=== PATIENT | female | born 1950 | race Caucasian/White ===

== ENCOUNTER 2017-10-27 10:36 | Outpatient (CLI) | payer MEDICARE, OTHER | END 2017-10-27 10:37 | disposition home or self-care (01) | LOC: BICMAMMO 10:36 | PROVIDERS: ATTEND Family Medicine | DX: Z12.31 Encounter for screening mammogram for malignant neoplasm of breast (principal) | CPT/HCPCS: 77063; 77067 ==

== ENCOUNTER 2020-10-13 13:00 | Outpatient (CLI) | payer MEDICARE, OTHER | END 2020-10-13 13:01 | disposition home or self-care (01) | LOC: BICRAD 13:00 | PROVIDERS: ATTEND Family Medicine | DX: M54.2 Cervicalgia (principal); M47.812 Spondylosis without myelopathy or radiculopathy, cervical region | CPT/HCPCS: 72040 ==

== ENCOUNTER 2022-04-27 14:30 | Outpatient (CLI) | payer MEDICARE, OTHER | END 2022-04-27 14:31 | disposition home or self-care (01) | LOC: ULT 14:30 | PROVIDERS: ATTEND Ophthalmology Retina Specialist | DX: H35.82 Retinal ischemia (principal) | CPT/HCPCS: 93880 ==

== ENCOUNTER 2022-05-17 07:24 | Outpatient (CLI) | payer MEDICARE, OTHER ==
[2022-05-17] MEDS ORDERED: Iopamidol-370 76% 500 ML 1 ML ONE (08:30)
== END 2022-05-17 07:25 | disposition home or self-care (01) ==
LOC: BICCT 07:24
PROVIDERS: ATTEND Thoracic Surgery (Cardiothoracic Vascular Surgery)
DX: I65.21 Occlusion and stenosis of right carotid artery (principal)
CPT/HCPCS: 70498; 82565; Q9967

== ENCOUNTER 2022-06-07 10:46 | Outpatient (CLI) | payer MEDICARE, OTHER ==
[2022-06-07 11:44] LABS: Hemoglobin 14.5 g/dL (12.0-15.5); Mean Corpuscular HGB CONC 32.7 g/dL (32.0-36.0); Mean Corpuscular Hemoglobin 30.9 pg (27.0-33.0); Mean Corpuscular Volume 94.7 fl (81.6-98.3); Mean Platelet Volume 11.2 fl (7.4-10.4); Platelet Count 294 10x3/uL (150-450); RBC Distribution Width 13.9 % (11.5-14.5); Red Blood Cell (RBC) Count 4.69 10x6/uL (3.90-5.03); White Blood Cell (WBC) Count 10.1 10x3/uL (3.5-10.5)
[2022-06-07 11:52] LABS: Anion Gap 18 mmol/L (10-20); BUN (Urea Nitrogen) 18 mg/dL (9.8-20.1); Calc. Creatinine Clearance 0 mL/min (70-130); Calcium 9.5 mg/dL (7.8-10.44); Carbon Dioxide 24 mmol/L (23-31); Chloride 104 mmol/L (98-107); Estimated GFR 78; Glucose 129 mg/dL (83-110); Potassium 4.1 mmol/L (3.5-5.1); Sodium 142 mmol/L (136-145)
== END 2022-06-07 10:47 | disposition home or self-care (01) ==
LOC: LABBT 10:46
PROVIDERS: ATTEND Thoracic Surgery (Cardiothoracic Vascular Surgery)
DX: Z01.818 Encounter for other preprocedural examination (principal)
CPT/HCPCS: 80048; 85027; 93005; 93010

== ENCOUNTER 2022-06-07 11:15 | Inpatient (IN) | payer MEDICARE, OTHER ==
[2022-06-08] MEDS ORDERED: Sodium Chloride 0.9% 100 ML ONE (07:20)
[2022-06-08] MEDS ORDERED: CEFAZOLIN 2 GM VIAL ONE (07:20)
[2022-06-08] MEDS ORDERED: Calcium Chloride 1 GM/10 ML Abboject SYRINGE ONE (07:30)
[2022-06-08] MEDS ORDERED: NEOSTIGMINE 3 MG/3 ML SYR 3 MG/3 ML SYRINGE ONE (07:30)
[2022-06-08] MEDS ORDERED: Lidocaine 1% PF 5 ML VIAL ONE (07:30)
[2022-06-08] MEDS ORDERED: Rocuronium Bromide 10 MG/ML (10ML VIAL) ONE (07:30)
[2022-06-08] MEDS ORDERED: Glycopyrrolate 0.2 MG/ML 5 ML SYRINGE ONE (07:30)
[2022-06-08] MEDS ORDERED: PROPOFOL 200 MG/20 ML VIAL ONE (07:30)
[2022-06-08] MEDS ORDERED: PHENYLEPHRINE-NS 100 MCG/ML 10 ML SYRINGE ONE (07:30)
[2022-06-08 07:44] LABS: SARS-CoV-2 NAA Rapid Test Not Detected (NotDetected)
[2022-06-08] MEDS ORDERED: SUGAMMADEX SODIUM 200 MG/2 ML VIAL ONE (08:05)
[2022-06-08] MEDS ORDERED: Ondansetron HCl/PF 4 MG/2 ML Vial IVP PRN (09:48)
[2022-06-08] MEDS ORDERED: traMADol HCl 50 MG TAB PO PRN (11:16)
[2022-06-08] MEDS ORDERED: Phenylephrine 40 MG in Sodium Chloride 0.9% 250 ML 250 ML IVPB PRN (11:16)
[2022-06-08] MEDS ORDERED: Insulin Regular 300 UNITS/3 ML VIAL SC PRN (11:16)
[2022-06-08] MEDS ORDERED: Acetaminophen 325 MG TAB PO PRN (11:16)
[2022-06-08] MEDS ORDERED: Ipratropium/Albuterol 3 ML NEB NEB PRN (11:16)
[2022-06-08] MEDS ORDERED: Sodium Chloride 0.9% 1,000 ML IV SCH (11:16)
[2022-06-08] MEDS ORDERED: Fentanyl 100 MCG/2 ML VIAL SLOW IVP PRN ×2 (11:16)
[2022-06-08 11:23] VITALS: BMI 48.9
[2022-06-08 11:32] VITALS: BP 142/74
[2022-06-08] MEDS: Ondansetron PF 4 MG/2 ML Vial IVP PRN ×2 (11:41→12:57)
[2022-06-08] MEDS: niCARdipine 25 MG in Sodium Chloride 0.9% 250 ML 250 ML IVPB PRN ×4 (12:56→23:26)
[2022-06-08] MEDS: CEFAZOLIN 2 GM in Sodium Chloride 0.9% 100 ML IVPB SCH ×2 (15:52→22:25)
[2022-06-08] MEDS ORDERED: Rosuvastatin 5 MG TAB PO SCH (21:00)
[2022-06-09] MEDS: niCARdipine 25 MG in Sodium Chloride 0.9% 250 ML 250 ML IVPB PRN ×3 (01:05→05:43)
[2022-06-09] MEDS: Ondansetron PF 4 MG/2 ML Vial IVP PRN (06:13)
[2022-06-09 06:30] VITALS: TEMP 98.9
[2022-06-09] MEDS: CEFAZOLIN 2 GM in Sodium Chloride 0.9% 100 ML IVPB SCH (06:46)
[2022-06-09] MEDS ORDERED: Glimepiride 1 MG TAB PO SCH (08:00)
[2022-06-09] MEDS ORDERED: Losartan 25 MG TAB PO SCH (09:00)
[2022-06-09] MEDS ORDERED: Aspirin Chewable 81 MG TAB PO SCH (09:00)
== END 2022-06-09 09:50 | disposition home or self-care (01) | DRG 37 ==
LOC: SURG A 06-08 06:27 → CCU 06-08 10:49
PROVIDERS: ADMIT Thoracic Surgery (Cardiothoracic Vascular Surgery); ATTEND Thoracic Surgery (Cardiothoracic Vascular Surgery)
PROC: 03CK0ZZ Extirpation of Matter from Right Internal Carotid Artery, Open Approach (ICD-10-PCS; principal; 2022-06-08)
PROC: 03UK0KZ Supplement Right Internal Carotid Artery with Nonautologous Tissue Substitute, Open Approach (ICD-10-PCS; 2022-06-08)
DX: I65.21 Occlusion and stenosis of right carotid artery (principal); I77.71 Dissection of carotid artery; K52.1 Toxic gastroenteritis and colitis; Z68.42 Body mass index [BMI] 45.0-49.9, adult; Z20.822 Contact with and (suspected) exposure to COVID-19; T36.95XA Adverse effect of unspecified systemic antibiotic, initial encounter; E11.9 Type 2 diabetes mellitus without complications; I10 Essential (primary) hypertension; E78.5 Hyperlipidemia, unspecified; Z79.899 Other long term (current) drug therapy; Z79.84 Long term (current) use of oral hypoglycemic drugs; Z90.49 Acquired absence of other specified parts of digestive tract; Z90.710 Acquired absence of both cervix and uterus; Z82.49 Family history of ischemic heart disease and other diseases of the circulatory system; Z80.9 Family history of malignant neoplasm, unspecified; Z83.3 Family history of diabetes mellitus; E66.3 Overweight
CPT/HCPCS: 36416; 80048; 85027; 93005; C1768; C1776; J2405; J2704; J3010; J3490; J7050; U0002

== ENCOUNTER 2023-09-27 14:09 | Inpatient (IN) | payer MEDICARE, OTHER ==
[~2023-09-27 14:09] MED LIST: Iopamidol 370 76% 100 ML VIAL ONE
[2023-09-27] MEDS ORDERED: Heparin 10,000 UNITS/ 10 ML VIAL ONE ×2 (14:29→14:32)
[2023-09-27] MEDS ORDERED: Aspirin Chewable 81 MG TAB ONE (14:29)
[2023-09-27] MEDS ORDERED: Ondansetron PF 4 MG/2 ML Vial ONE (14:29)
[2023-09-27] MEDS ORDERED: EPINEPHrine 1 MG/10 ML Abboject SYRINGE ONE (14:32)
[2023-09-27] MEDS ORDERED: PHENYLEPHRINE-NS 100 MCG/ML 10 ML SYRINGE ONE (14:32)
[2023-09-27] MEDS ORDERED: Nitroglycerin 50 MG/250 ML BOT 250 ML ONE (14:32)
[2023-09-27] MEDS ORDERED: Atropine Sulfate 1 mg/10 ml Syringe ONE (14:32)
[2023-09-27] MEDS ORDERED: Verapamil 5 MG/2 ML VIAL ONE (14:33)
[2023-09-27 14:45] LABS: #Basophils 0.05 10x3/uL (0.0-0.2); %Basophils 0.5 % (0.0-1.0); %Eosinophils 2.2 % (0.0-10.0); %Lymphocytes 14.8 % (21.0-51.0); %Monocytes 6.1 % (0.0-10.0); Hematocrit 41.7 % (36.0-47.0); Hemoglobin 13.9 g/dL (12.0-16.0); Mean Corpuscular HGB CONC 33.3 g/dL (32.0-36.0); Mean Corpuscular Volume 96.1 fL (78.0-98.0); Platelet Count 328 10x3/uL (130-400); RBC Distribution Width 14.7 % (11.5-14.5); Red Blood Cell (RBC) Count 4.34 mill/uL (4.20-5.40)
[2023-09-27 14:58] LABS: Prothrombin Time 13.3 sec (12.0-14.7)
[2023-09-27] MEDS ORDERED: TICAGRELOR 90 MG TABLET ONE (15:12)
[2023-09-27 15:18] LABS: ALT (SGPT) 10 U/L (8-55); AST (SGOT) 26 U/L (5-34); Albumin 3.6 g/dL (3.4-4.8); Alkaline Phosphatase 57 U/L (40-110); Anion Gap 14 mmol/L (10-20); BUN (Urea Nitrogen) 27 mg/dL (9.8-20.1); Bilirubin, Total 0.4 mg/dL (0.2-1.2); Calc. Creatinine Clearance 0 mL/min (70-130); Carbon Dioxide 22 mmol/L (23-31); Chloride 103 mmol/L (98-107); Estimated GFR 75; Globulin 4.1 g/dL (2.4-3.5); Glucose 131 mg/dL (83-110); Lipase 16 U/L (8-78); Potassium 4.4 mmol/L (3.5-5.1); Protein, Total 7.7 g/dL (5.8-8.1)
[2023-09-27 15:21] LABS: Troponin I 0.149 ng/mL (< 0.028)
[2023-09-27 15:32] LABS: Sodium 135 mmol/L (136-145)
[2023-09-27] MEDS ORDERED: Milk Of Magnesia 30 ML UDCUP PO PRN (15:43)
[2023-09-27] MEDS ORDERED: Nitroglycerin 0.4 MG TAB (25 Tab Bottle) SL PRN (15:43)
[2023-09-27] MEDS ORDERED: Mag-Al 1200 mg/1200 mg/30 ML UDCUP PO PRN (15:43)
[2023-09-27] MEDS ORDERED: Zolpidem Tartrate 5 MG TAB PO PRN (15:43)
[2023-09-27 17:04] VITALS: BMI 50.3
[2023-09-27] MEDS: Sodium Chloride 0.9% 500 ML IV SCH (17:30)
[2023-09-27] MEDS: Morphine 4 MG/ML VIAL SLOW IVP PRN (18:01)
[2023-09-27] MEDS: Ondansetron PF 4 MG/2 ML Vial ONE (18:25)
[2023-09-27] MEDS: TICAGRELOR 90 MG TABLET PO SCH (21:30)
[2023-09-27] MEDS: Rosuvastatin 20 MG TAB PO SCH (22:20)
[2023-09-28] MEDS: Sodium Chloride 0.9% 500 ML IVPB SCH ×2 (01:10→03:00)
[2023-09-28] MEDS ORDERED: Dextrose 50% Abboject 50 ML SYRINGE SLOW IVP PRN (03:38)
[2023-09-28] MEDS ORDERED: HumaLOG 300 UNITS/3 ML VIAL SC PRN ×2 (03:38)
[2023-09-28] MEDS ORDERED: Dextrose 5% in Water 1,000 ML IV PRN (03:38)
[2023-09-28] MEDS ORDERED: Glucagon 1 MG/ML KIT IM PRN (03:38)
[2023-09-28 03:40] LABS: #Basophils 0.04 10x3/uL (0.0-0.2); #Eosinphils Less than 0.03 10x3/uL (0.0-0.7); %Basophils 0.4 % (0.0-1.0); %Eosinophils 0.2 % (0.0-10.0); %Lymphocytes 10.1 % (21.0-51.0); %Monocytes 7.3 % (0.0-10.0); %Neutrophils 81.7 % (42.0-75.0); Hematocrit 35.7 % (36.0-47.0); Hemoglobin 11.5 g/dL (12.0-16.0); Mean Corpuscular HGB CONC 32.2 g/dL (32.0-36.0); Mean Corpuscular Hemoglobin 31.5 pg (27.0-31.0); Mean Corpuscular Volume 97.8 fL (78.0-98.0); Mean Platelet Volume 9.8 fL (7.4-10.4); Platelet Count 280 10x3/uL (130-400); Red Blood Cell (RBC) Count 3.65 mill/uL (4.20-5.40)
[2023-09-28 04:02] LABS: Lactic Acid 0.7 mmol/L (0.5-2.2)
[2023-09-28 04:08] LABS: ALT (SGPT) 23 U/L (8-55); AST (SGOT) 76 U/L (5-34); Albumin 2.9 g/dL (3.4-4.8); Alkaline Phosphatase 54 U/L (40-110); Anion Gap 12 mmol/L (10-20); BUN (Urea Nitrogen) 25 mg/dL (9.8-20.1); Bilirubin, Total 0.4 mg/dL (0.2-1.2); Calc. Creatinine Clearance 154 mL/min (70-130); Calcium 8.5 mg/dL (7.8-10.44); Carbon Dioxide 20 mmol/L (23-31); Chloride 110 mmol/L (98-107); Cholesterol 123 mg/dl (< 200 Desired); Estimated GFR 93; Glucose 109 mg/dL (83-110); HDL Cholesterol 31 mg/dL (>60 Neg Risk); LDL Cholesterol, Calculated 76 mg/dL; Potassium 3.6 mmol/L (3.5-5.1); Protein, Total 5.9 g/dL (5.8-8.1); Sodium 138 mmol/L (136-145); Triglycerides 82 mg/dL (Less than 150)
[2023-09-28 05:17] LABS: Thyroid Stimulating Hormone 1.4266 uIU/mL (0.35-4.94)
[2023-09-28 05:33] LABS: Free T4 (Free Thyroxine) 1.02 ng/dL (0.70-1.48)
[2023-09-28] MEDS: Aspirin Chewable 81 MG TAB PO SCH (08:15)
[2023-09-28] MEDS: Ondansetron PF 4 MG/2 ML Vial IVP PRN (08:16)
[2023-09-28] MEDS: Amiodarone 450 MG, Admixture Fee 1 EACH in Dextrose 5% in Water 250 ML IVPB SCH ×2 (08:39→23:55)
[2023-09-28] MEDS: Acetaminophen/Codeine 30-300mg Tablet PO PRN (11:51)
[2023-09-28] MEDS: Enoxaparin 30 MG (0.3 mL) SYRINGE SC SCH (11:53)
[2023-09-28] MEDS: Enoxaparin 100 MG (1 mL) SYRINGE SC SCH (11:54)
[2023-09-28] MEDS: Metoprolol Tartrate 50 MG TAB PO SCH (20:43)
[2023-09-29 06:23] LABS: #Basophils 0.04 10x3/uL (0.0-0.2); %Basophils 0.4 % (0.0-1.0); %Eosinophils 0.9 % (0.0-10.0); %Lymphocytes 14.6 % (21.0-51.0); %Monocytes 9.8 % (0.0-10.0); Hematocrit 32.6 % (36.0-47.0); Hemoglobin 10.5 g/dL (12.0-16.0); Mean Corpuscular HGB CONC 32.2 g/dL (32.0-36.0); Mean Corpuscular Hemoglobin 31.7 pg (27.0-31.0); Mean Corpuscular Volume 98.5 fL (78.0-98.0); Mean Platelet Volume 10.2 fL (7.4-10.4); Platelet Count 290 10x3/uL (130-400); Red Blood Cell (RBC) Count 3.31 mill/uL (4.20-5.40)
[2023-09-29 06:31] LABS: ALT (SGPT) 31 U/L (8-55); AST (SGOT) 65 U/L (5-34); Albumin 2.9 g/dL (3.4-4.8); Alkaline Phosphatase 54 U/L (40-110); Anion Gap 14 mmol/L (10-20); BUN (Urea Nitrogen) 26 mg/dL (9.8-20.1); Bilirubin, Total 0.4 mg/dL (0.2-1.2); Calc. Creatinine Clearance 131 mL/min (70-130); Calcium 8.6 mg/dL (7.8-10.44); Carbon Dioxide 20 mmol/L (23-31); Chloride 108 mmol/L (98-107); Estimated GFR 84; Globulin 3.1 g/dL (2.4-3.5); Glucose 133 mg/dL (83-110); Potassium 3.6 mmol/L (3.5-5.1); Sodium 138 mmol/L (136-145)
[2023-09-29] MEDS: Lisinopril 2.5 MG TAB PO SCH (14:28)
[2023-09-30 05:34] LABS: Anion Gap 13 mmol/L (10-20); BUN (Urea Nitrogen) 25 mg/dL (9.8-20.1); Calc. Creatinine Clearance 134 mL/min (70-130); Calcium 8.4 mg/dL (7.8-10.44); Carbon Dioxide 21 mmol/L (23-31); Chloride 108 mmol/L (98-107); Estimated GFR 87; Glucose 124 mg/dL (83-110); Magnesium 1.8 mg/dL (1.6-2.6); Phosphorus 2.2 mg/dL (2.3-4.7); Potassium 3.4 mmol/L (3.5-5.1); Sodium 139 mmol/L (136-145)
[2023-09-30 06:10] LABS: #Basophils 0.05 10x3/uL (0.0-0.2); %Basophils 0.5 % (0.0-1.0); %Eosinophils 2.4 % (0.0-10.0); %Lymphocytes 18.5 % (21.0-51.0); %Monocytes 9.5 % (0.0-10.0); %Neutrophils 68.6 % (42.0-75.0); Hematocrit 30.7 % (36.0-47.0); Hemoglobin 10.1 g/dL (12.0-16.0); Mean Corpuscular HGB CONC 32.9 g/dL (32.0-36.0); Mean Corpuscular Hemoglobin 31.4 pg (27.0-31.0); Mean Corpuscular Volume 95.3 fL (78.0-98.0); Mean Platelet Volume 10.5 fL (7.4-10.4); Platelet Count 267 10x3/uL (130-400); Red Blood Cell (RBC) Count 3.22 mill/uL (4.20-5.40)
[2023-09-30] MEDS: Lisinopril 2.5 MG TAB PO SCH (08:13)
[2023-09-30] MEDS: Hyaluronidase, Human Recomb. 150 UNITS/ML VIAL SC SCH (08:15)
[2023-09-30] MEDS: Potassium Phosphate 15 MMOL in Sodium Chloride 0.9% 100 ML IVPB SCH (10:35)
[2023-09-30] MEDS: Amiodarone 200 MG TAB PO SCH ×2 (12:20→20:37)
[2023-09-30] MEDS: Apixaban 5 MG TAB PO SCH (20:38)
[2023-09-30] MEDS: traMADol HCl 50 MG TAB PO PRN (20:39)
[2023-10-01 07:15] LABS: Anion Gap 13 mmol/L (10-20); BUN (Urea Nitrogen) 22 mg/dL (9.8-20.1); Calc. Creatinine Clearance 140 mL/min (70-130); Calcium 8.9 mg/dL (7.8-10.44); Carbon Dioxide 22 mmol/L (23-31); Chloride 108 mmol/L (98-107); Estimated GFR 90; Glucose 119 mg/dL (83-110); Potassium 3.4 mmol/L (3.5-5.1); Sodium 140 mmol/L (136-145)
[2023-10-01] MEDS: Clopidogrel Bisulfate 75 MG TAB PO SCH (08:01)
[2023-10-01] MEDS: Potassium Chloride 20 MEQ TAB PO SCH (12:17)
[2023-10-01 18:09] LABS: Hemoglobin A1c 5.4 % (4.0-6.0)
[2023-10-02 08:08] LABS: Anion Gap 15 mmol/L (10-20); BUN (Urea Nitrogen) 28 mg/dL (9.8-20.1); Calc. Creatinine Clearance 136 mL/min (70-130); Calcium 8.9 mg/dL (7.8-10.44); Carbon Dioxide 20 mmol/L (23-31); Chloride 108 mmol/L (98-107); Estimated GFR 87; Glucose 116 mg/dL (83-110); Sodium 139 mmol/L (136-145)
[2023-10-02 15:49] VITALS: BP 135/64; TEMP 98.2
[2023-10-03] MEDS ORDERED: Losartan 25 MG TAB PO SCH (09:00)
== END 2023-10-02 16:50 | disposition home or self-care (01) | DRG 322 ==
LOC: ERS 14:09 → SDC 15:18 → CCU 15:43 → 2NO 09-30 18:30
PROVIDERS: ADMIT Internal Medicine Cardiovascular Disease; ATTEND Internal Medicine
PROC: 4A023N7 Measurement of Cardiac Sampling and Pressure, Left Heart, Percutaneous Approach (ICD-10-PCS; principal; 2023-09-27)
PROC: 027035Z Dilation of Coronary Artery, One Artery with Two Drug-eluting Intraluminal Devices, Percutaneous Approach (ICD-10-PCS; 2023-09-27)
PROC: B2151ZZ Fluoroscopy of Left Heart using Low Osmolar Contrast (ICD-10-PCS; 2023-09-27)
PROC: B2111ZZ Fluoroscopy of Multiple Coronary Arteries using Low Osmolar Contrast (ICD-10-PCS; 2023-09-27)
DX: I21.19 ST elevation (STEMI) myocardial infarction involving other coronary artery of inferior wall (principal); I10 Essential (primary) hypertension; E11.51 Type 2 diabetes mellitus with diabetic peripheral angiopathy without gangrene; E78.5 Hyperlipidemia, unspecified; H40.9 Unspecified glaucoma; I48.91 Unspecified atrial fibrillation; S30.1XXA Contusion of abdominal wall, initial encounter; W18.30XA Fall on same level, unspecified, initial encounter; Z79.01 Long term (current) use of anticoagulants; Z79.82 Long term (current) use of aspirin; Z79.4 Long term (current) use of insulin; Z88.8 Allergy status to other drugs, medicaments and biological substances; Z98.890 Other specified postprocedural states; Z90.710 Acquired absence of both cervix and uterus; Z90.49 Acquired absence of other specified parts of digestive tract; Z79.899 Other long term (current) drug therapy
CPT/HCPCS: 36415; 36416; 71045; 80048; 80053; 80061; 83036; 83605; 83690; 83735; 83880; 84100; 84439; 84443; 84484; 85025; 85347; 85610; 85730; 92941; 93005; 93010; 93306; 93458; 93798; 94760; 96374; 96375; C1769; C1874; C1887; C9606; J0171; J0282; J0461; J1644; J1650; J2270; J2405; J3473; J3490; J7030; J7070; Q9967

== ENCOUNTER 2024-01-04 13:47 | Outpatient (CLI) | payer MEDICARE, OTHER | END 2024-01-04 13:48 | disposition home or self-care (01) | LOC: BICMAMMO 13:47 | PROVIDERS: ATTEND Family Medicine | DX: Z12.31 Encounter for screening mammogram for malignant neoplasm of breast (principal); N63.15 Unspecified lump in the right breast, overlapping quadrants; Z78.0 Asymptomatic menopausal state | CPT/HCPCS: 77063; 77067; 77080 ==

== ENCOUNTER 2024-01-12 14:49 | Outpatient (CLI) | payer MEDICARE, OTHER | END 2024-01-12 14:50 | disposition home or self-care (01) | LOC: BICMAMMO 14:49 | PROVIDERS: ATTEND Family Medicine | DX: N63.15 Unspecified lump in the right breast, overlapping quadrants (principal); R92.8 Other abnormal and inconclusive findings on diagnostic imaging of breast | CPT/HCPCS: 76642; 77065; G0279 ==

== ENCOUNTER 2024-11-11 09:36 | Inpatient (IN) | payer MEDICARE ==
[2024-11-11 11:25] LABS: #Basophils 0.04 10x3/uL (0.0-0.2); #Eosinophils 0.18 10x3/uL (0.0-0.7); #Monocytes 0.52 10x3/uL (0.11-0.59); #Neutrophils 5.37 10x3/uL (1.40-6.50); %Basophils 0.5 % (0.0-1.0); %Eosinophils 2.4 % (0.0-10.0); %Lymphocytes 17.6 % (21.0-51.0); %Monocytes 7.0 % (0.0-10.0); %Neutrophils 72.1 % (42.0-75.0); Hematocrit 39.0 % (36.0-47.0); Hemoglobin 12.8 g/dL (12.0-16.0); Mean Corpuscular Hemoglobin 31.5 pg (27.0-31.0); Mean Corpuscular Volume 96.1 fL (78.0-98.0); Platelet Count 223 10x3/uL (130-400); Red Blood Cell (RBC) Count 4.06 mill/uL (4.20-5.40); White Blood Cell (WBC) Count 7.45 10x3/uL (4.8-10.8)
[2024-11-11 11:47] LABS: Troponin I Less than 0.010 ng/mL (< 0.028)
[2024-11-11 12:16] LABS: ALT (SGPT) 10 U/L (Less than 34); AST (SGOT) 23 U/L (11-34); Albumin 3.4 g/dL (3.1-4.5); Alkaline Phosphatase 51 U/L (40-110); Anion Gap 14 mmol/L (10-20); BUN (Urea Nitrogen) 27 mg/dL (9.8-20.1); Bilirubin, Total 0.4 mg/dL (0.3-1.2); Calc. Creatinine Clearance 0 mL/min (70-130); Calcium 9.3 mg/dL (7.8-10.44); Carbon Dioxide 25 mmol/L (23-31); Chloride 105 mmol/L (98-107); Globulin 3.3 g/dL (2.4-3.5); Glucose 95 mg/dL (83-110); Potassium 3.7 mmol/L (3.5-5.1); Sodium 140 mmol/L (136-145)
[2024-11-11] MEDS ORDERED: Senokot S 8.6-50 MG TAB PO PRN (14:27)
[2024-11-11] MEDS ORDERED: Glucagon 1 MG/ML KIT IM PRN (14:27)
[2024-11-11] MEDS ORDERED: Ondansetron PF 4 MG/2 ML Vial IVP PRN (14:27)
[2024-11-11] MEDS ORDERED: Dextrose 50% Abboject 50 ML SYRINGE SLOW IVP PRN (14:27)
[2024-11-11] MEDS ORDERED: Nitroglycerin 0.4 MG TAB (25 Tab Bottle) SL PRN (14:27)
[2024-11-11] MEDS ORDERED: Electrolyte Replacement Protocol 1 EACH FS SCH (14:30)
[2024-11-11] MEDS ORDERED: Pantoprazole 40 MG VIAL IVP SCH (14:30)
[2024-11-11] MEDS ORDERED: Communication Order-Pharmacy FS SCH (14:35)
[2024-11-11 14:52] LABS: Troponin I 0.010 ng/mL (< 0.028)
[2024-11-11 14:56] LABS: Magnesium 1.9 mg/dL (1.6-2.6)
[2024-11-11 17:12] LABS: Troponin I Less than 0.010 ng/mL (< 0.028)
[2024-11-11] MEDS ORDERED: Furosemide 40 MG TAB PO SCH (18:00)
[2024-11-11 20:44] VITALS: BMI 47.5
[2024-11-11] MEDS: Magnesium 2 GM/50 ML(in water) 2 GM in Premix 1 BAG IVPB SCH (21:34)
[2024-11-11] MEDS: Furosemide 20 MG TAB PO SCH (21:34)
[2024-11-11] MEDS: Pantoprazole 40 MG VIAL IVP SCH (21:34)
[2024-11-12 04:49] LABS: #Basophils 0.03 10x3/uL (0.0-0.2); #Eosinophils 0.13 10x3/uL (0.0-0.7); #Monocytes 0.54 10x3/uL (0.11-0.59); #Neutrophils 4.67 10x3/uL (1.40-6.50); %Basophils 0.4 % (0.0-1.0); %Eosinophils 1.9 % (0.0-10.0); %Lymphocytes 22.0 % (21.0-51.0); %Monocytes 7.8 % (0.0-10.0); %Neutrophils 67.8 % (42.0-75.0); Hematocrit 36.9 % (36.0-47.0); Hemoglobin 11.8 g/dL (12.0-16.0); Mean Corpuscular Hemoglobin 31.3 pg (27.0-31.0); Mean Corpuscular Volume 97.9 fL (78.0-98.0); Platelet Count 214 10x3/uL (130-400); Red Blood Cell (RBC) Count 3.77 mill/uL (4.20-5.40); White Blood Cell (WBC) Count 6.90 10x3/uL (4.8-10.8)
[2024-11-12 05:14] LABS: Anion Gap 13 mmol/L (10-20); BUN (Urea Nitrogen) 22 mg/dL (9.8-20.1); Calc. Creatinine Clearance 137 mL/min (70-130); Calcium 8.8 mg/dL (7.8-10.44); Carbon Dioxide 24 mmol/L (23-31); Chloride 108 mmol/L (98-107); Glucose 77 mg/dL (83-110); Magnesium 2.0 mg/dL (1.6-2.6); Potassium 3.4 mmol/L (3.5-5.1); Sodium 142 mmol/L (136-145)
[2024-11-12] MEDS: Magnesium 2 GM/50 ML(in water) 2 GM in Premix 1 BAG IVPB SCH (09:21)
[2024-11-12] MEDS: Potassium Chloride 20 MEQ in Premix 1 BAG IVPB SCH (09:21)
[2024-11-12] MEDS: Aspirin 81 mg Enteric Coated Tablet PO SCH (09:23)
[2024-11-12] MEDS: Pantoprazole 40 MG DR.TAB PO SCH (09:23)
[2024-11-13] MEDS: Acetaminophen 325 MG TAB PO PRN (09:25)
[2024-11-13 11:54] VITALS: BP 125/57; TEMP 98.1
== END 2024-11-13 15:09 | disposition home or self-care (01) | DRG 149 ==
LOC: ERS 09:36 → ERHOLD 13:07 → 2NO 20:37 → OBSVTOIN 11-12 20:29
PROVIDERS: ADMIT Hospitalist; ATTEND Emergency Medicine
DX: R42 Dizziness and giddiness (principal); I10 Essential (primary) hypertension; E78.5 Hyperlipidemia, unspecified; I48.91 Unspecified atrial fibrillation; I25.10 Atherosclerotic heart disease of native coronary artery without angina pectoris; E11.51 Type 2 diabetes mellitus with diabetic peripheral angiopathy without gangrene; I25.2 Old myocardial infarction; Z95.5 Presence of coronary angioplasty implant and graft; Z98.890 Other specified postprocedural states; Z90.710 Acquired absence of both cervix and uterus; Z88.8 Allergy status to other drugs, medicaments and biological substances; Z91.018 Allergy to other foods; Z91.02 Food additives allergy status; Z79.899 Other long term (current) drug therapy; Z79.01 Long term (current) use of anticoagulants; Z90.49 Acquired absence of other specified parts of digestive tract
CPT/HCPCS: 36415; 36416; 70450; 71045; 78452; 80048; 80053; 83735; 83880; 84443; 84484; 85025; 93005; 93017; 96372; 96374; 96375; 96376; A9502; G0378; J1650; J2470; J2785; J3475; J3480